=== PATIENT | female | born 1940 | race African-American/Black ===

== ENCOUNTER 2018-01-09 11:37 | Outpatient (REF) | payer MEDICARE, SELFPAY ==
[2018-01-09 18:48] LABS: ALT 16 U/L (12-78); AST 12 U/L (15-37); Alkaline Phosphatase 126 U/L (46-116); Anion Gap 8.3 mmol/L (3-11); BUN 10 mg/dL (7-18); Bilirubin, Total 0.5 mg/dL (0.2-1.0); CO2 30.7 mmol/L (21.0-32.0); CREATININE 0.83 mg/dL (0.55-1.02); Calcium 9.5 mg/dL (8.5-10.1); Chloride 102 mmol/L (98-107); Cholesterol 237 mg/dL (50-200); Glucose 114 mg/dL (70-100); HDL Cholesterol 51 mg/dL (40-60); LDL CHOLESTEROL 148 mg/dL (<100); Potassium 4.1 mmol/L (3.5-5.1); Sodium 141 mmol/L (136-145); Total Protein 7.6 g/dL (6.4-8.2); Triglyceride 126 mg/dL (30-150)
== END 2018-01-09 11:57 ==
LOC: NCHCN 11:37
PROVIDERS: PCP Nurse Practitioner Family; Visit Provider Nurse Practitioner Family
DX: E78.5 Hyperlipidemia, unspecified (principal); E11.9 Type 2 diabetes mellitus without complications; I70.0 Atherosclerosis of aorta
CPT/HCPCS: 80053; 80061; 83721

== ENCOUNTER 2018-05-19 10:02 | Outpatient (REF) | payer MEDICARE, SELFPAY ==
[2018-05-19 19:47] LABS: COMMENT (LAB VIEW ONLY) 24.77 mg/dL; Microalb ug/mg Crea 5.7 ug/mg Cr
== END 2018-05-19 10:22 ==
LOC: NCHCN 10:02
PROVIDERS: PCP Nurse Practitioner Family; Visit Provider Nurse Practitioner Family
DX: E11.9 Type 2 diabetes mellitus without complications (principal)
CPT/HCPCS: 82043; 82570

== ENCOUNTER 2019-10-12 14:59 | Outpatient (REF) | payer MEDICARE, SELFPAY ==
[2019-10-12 19:28] LABS: ALT 22 U/L (14-59); AST 15 U/L (15-37); Alkaline Phosphatase 170 U/L (46-116); Anion Gap 8.7 mmol/L (3-11); BUN 10 mg/dL (7-18); Bilirubin, Total 0.5 mg/dL (0.2-1.0); CO2 28.3 mmol/L (21.0-32.0); CREATININE 0.84 mg/dL (0.55-1.02); Calcium 9.5 mg/dL (8.5-10.1); Chloride 104 mmol/L (98-107); Glucose 112 mg/dL (74-106); Sodium 141 mmol/L (136-145); Total Protein 7.6 g/dL (6.4-8.2)
== END 2019-10-12 15:19 ==
LOC: NCHCN 14:59
PROVIDERS: PCP Nurse Practitioner Family; Visit Provider Nurse Practitioner Family
DX: E11.9 Type 2 diabetes mellitus without complications (principal); I10 Essential (primary) hypertension
CPT/HCPCS: 80053

== ENCOUNTER 2020-05-09 15:04 | Outpatient (REF) | payer MEDICARE, SELFPAY ==
[2020-05-09 20:11] LABS: COMMENT (LAB VIEW ONLY) 37.37 mg/dL; Microalb ug/mg Crea 10.7 ug/mg Cr
== END 2020-05-09 15:05 | disposition home or self-care (01) ==
LOC: NCHCN 15:04
PROVIDERS: PCP Nurse Practitioner Family; Visit Provider Physician Assistant
DX: E11.9 Type 2 diabetes mellitus without complications (principal)
CPT/HCPCS: 82043; 82570

== ENCOUNTER 2020-06-15 10:55 | Outpatient (REF) | payer OTHER, SELFPAY ==
[2020-06-15 16:44] LABS: ALT 29 U/L (14-59); AST 14 U/L (15-37); Alkaline Phosphatase 158 U/L (46-116); Anion Gap 10.7 mmol/L (3-11); BUN 10 mg/dL (7-18); Bilirubin, Total 0.5 mg/dL (0.2-1.0); CO2 28.3 mmol/L (21.0-32.0); CREATININE 0.8 mg/dL (0.55-1.02); Calcium 9.2 mg/dL (8.5-10.1); Calculated LDL 54 mg/dL (<100); Chloride 105 mmol/L (98-107); Cholesterol 118 mg/dL (<200); Glucose 132 mg/dL (74-106); HDL Cholesterol 51 mg/dL (40-60); Potassium 4.4 mmol/L (3.5-5.1); Sodium 144 mmol/L (136-145); Total Protein 7.6 g/dL (6.4-8.2); Triglyceride 69 mg/dL (<150)
== END 2020-06-15 10:56 | disposition home or self-care (01) ==
LOC: NCHCN 10:55
PROVIDERS: PCP Nurse Practitioner Family; Visit Provider Nurse Practitioner Family
DX: E11.9 Type 2 diabetes mellitus without complications (principal); I10 Essential (primary) hypertension; E78.5 Hyperlipidemia, unspecified
CPT/HCPCS: 80053; 80061

== ENCOUNTER 2021-11-21 02:25 | Outpatient (CLI) | payer MEDICARE, SELFPAY ==
--- NOTE | 2021-11-21 09:47 | DI.RAD_ITS ---
Exam(s) XR SHOULDER RT COMPLETE 2+V EXAM: XR SHOULDER RT COMPLETE 2+V CLINICAL HISTORY: evaluate joint space,bony pathology, arthritis, capsulitis, pain, m75.01,. TECHNIQUE: 2D digital imaging was performed. Five views. COMPARISON: No exams were available for comparison FINDINGS: BONES: No acute fracture is present. No bony destructive lesion is seen. Severe spur spurring at the inferior humeral head. Flattening and remodeling of the humeral head. Marked subchondral cyst form ation glenoid and humeral head. JOINTS: No dislocation present. There is severe narrowing of the glenohumeral joint with a bone-on-b one appearance. Mild spurring of the AC joint. SOFT TISSUE: Normal. IMPRESSION: End-stage degenerative changes of the glenohumeral joint. DATA REPOSITORY: RADIATION DOSE DELIVERED:
== END 2021-11-21 02:45 ==
LOC: DI 02:26
PROVIDERS: PCP Student in an Organized Health Care Education/Training Program; Visit Provider Student in an Organized Health Care Education/Training Program
DX: M19.011 Primary osteoarthritis, right shoulder (principal); M75.01 Adhesive capsulitis of right shoulder
CPT/HCPCS: 73030

== ENCOUNTER → 2021-12-08 10:08 | Outpatient (BNVA) | payer MEDICARE, SELFPAY | PROVIDERS: PCP Student in an Organized Health Care Education/Training Program; Referring Provider Internal Medicine; Visit Provider Surgery | DX: I73.9 Peripheral vascular disease, unspecified (principal) | CPT/HCPCS: 93922; 99211 ==

== ENCOUNTER 2021-12-26 11:18 | Emergency (ER) | payer MEDICARE, SELFPAY ==
[2021-12-26] VITALS (11 sets, daily range): BP systolic 168–218; BP diastolic 60–78; PULSE 70–86; RESP 12–24; O2SAT 91–96
--- NOTE | 2021-12-26 11:40 | ED.GENADUL_ITS ---
Discharge Plan Disposition Patient Disposition: HOME Condition: Stable Discharge Details Clinical Impression: Hypertension Primary Care Provider: Ania King ED Provider: Katie Fried Home Meds and New Rx's Prescriptions: Continued aspirin [Adult Low Dose Aspirin] 81 mg tablet,delayed release (DR/EC) 81 mg PO DAILY nystatin 100,000 unit/gram ointment 1 applic topical BID triamcinolone acetonide 0.1 % ointment 1 applic topical PRN glipizide 5 mg tablet 5 mg PO DAILY Qty: 90 3RF olmesartan-hydrochlorothiazide 40-12.5 mg tablet 1 tab PO DAILY Qty: 90 0RF Hold Instructions: Home Medication placed on hold at Doctor's office amlodipine 2.5 mg tablet 2.5 mg PO DAILY Qty: 90 3RF olmesartan 20 mg tablet 20 mg PO DAILY Qty: 90 0RF Rx Instructions: Trial w/o HCTZ acetaminophen [Tylenol Arthritis Pain] 650 mg tablet extended release 650 mg PO Q12H PRN (Reason: pain) Qty: 60 0RF carvedilol 25 mg tablet 25 mg PO BID Qty: 180 0RF Rx Instructions: must administer with a meal/food Tradjenta 5 mg tablet 5 mg PO DAILY Qty: 90 3RF atorvastatin 40 mg tablet 40 mg PO QHS Qty: 90 3RF Tradjenta 5 mg Tablet 5 mg PO 1XD Discharge Instructions Instructions: Hypertension (ED) Additional Instructions: Continue your regular medications as directed. Call your primary care doctor's office today to schedule a follow up appointment for reevaluation. Return immediately to the emergency department if you develop any worsening or new concerning symptoms such as persistent high blood pressure despite taking medication, headache, chest pain, dizziness or any other concerns. Discharge Data Discharge Physician: Katie Fried Medical Decision Making 81-year-old female sent from the orthopedic office for high blood pressure noted on her appointment this morning after recommended she presents to the ER per orthopedist discussion with PCP. Her BP at the orthopedist office today was 218/116. She normally takes her blood pressure medications with food and did not eat this morning and went directly to her appointment. She has been asymptomatic. Blood pressure 218/78 on arrival. She appears comfortable and nontoxic. No focal deficits. As she is asymptomatic and appears comfortable, history of presentation does not appear consistent with hypertensive emergency I do not see indication for labs or imaging at this time. We do not carry olmesartan. We will give a dose of patient's carvedilol and amlodipine and recheck her BP. BP 181/63. Patient feels comfortable going home. Advised to take her olmesartan when she returns home. Advised to follow up with the primary care doctor for re-evaluation. Usual and customary return precautions given prior to discharge. HPI General Mode of arrival: ambulatory . Date/Time Provider Initiated Documentation: 12/26/21 11:28 . Limitations to Documentation: no limitations . Information obtained by: patient . HPI Narrative: Patient is an 81-year-old female with a history of hypertension, hyperlipidemia, former smoker, diabetes and known degenerative joint disease in her right shoulder presents for hypertension noted at the orthopedic office today where she left for her right shoulder pain. Per the orthopedist record from visit one hour ago, her BP was 218/116 and she reported that she had not taken her BP meds yet today, was asymptomatic and a call was placed to her PCP from the orthopedist office and the PCP referred her to the ED. patient states she usually takes her medications with food but had the orthopedist appointment today so did not eat and hence did not take her blood pressure medication. She states she takes all of her blood pressure medications including amlodipine, carvedilol and olmesartan in the morning and has not taken any of these yet today. She denies any headache, blurry vision, chest pain, shortness of breath, dizziness or extremity weakness or numbness. Related Data Home Medications Medication Instructions Recorded Confirmed aspirin 81 mg tablet,delayed 81 mg PO DAILY 08/30/20 12/26/21 release (Adult Low Dose Aspirin) nystatin 100,000 unit/gram topical 1 applic topical BID 08/31/20 12/26/21 ointment triamcinolone acetonide 0.1 % 1 applic topical PRN 08/31/20 12/26/21 topical ointment glipizide 5 mg tablet 5 mg PO DAILY #90 tabs 11/01/20 12/26/21 olmesartan 40 1 tab PO DAILY #90 tabs 08/29/21 12/26/21 mg-hydrochlorothiazide 12.5 mg tablet amlodipine 2.5 mg tablet 2.5 mg PO DAILY #90 tabs 09/27/21 12/26/21 acetaminophen 650 mg 650 mg PO Q12H PRN pain #60 tabs 10/18/21 12/26/21 tablet,extended release (Tylenol Arthritis Pain) olmesartan 20 mg tablet 20 mg PO DAILY #90 tabs 10/18/21 12/26/21 carvedilol 25 mg tablet 25 mg PO BID #180 tabs 10/30/21 12/26/21 atorvastatin 40 mg tablet 40 mg PO QHS #90 tabs 11/21/21 12/26/21 linagliptin 5 mg tablet (Tradjenta) 5 mg PO DAILY #90 tabs 11/21/21 12/26/21 linagliptin 5 mg tablet (Tradjenta) 5 mg PO 1XD 12/26/21 12/26/21 Previous Rx's Medication Instructions Recorded glipizide 5 mg tablet 5 mg PO DAILY #90 tabs 11/01/20 olmesartan 40 1 tab PO DAILY #90 tabs 08/29/21 mg-hydrochlorothiazide 12.5 mg tablet amlodipine 2.5 mg tablet 2.5 mg PO DAILY #90 tabs 09/27/21 acetaminophen 650 mg 650 mg PO Q12H PRN pain #60 tabs 10/18/21 tablet,extended release (Tylenol Arthritis Pain) olmesartan 20 mg tablet 20 mg PO DAILY #90 tabs 10/18/21 carvedilol 25 mg tablet 25 mg PO BID #180 tabs 10/30/21 atorvastatin 40 mg tablet 40 mg PO QHS #90 tabs 11/21/21 linagliptin 5 mg tablet (Tradjenta) 5 mg PO DAILY #90 tabs 11/21/21 Allergies Allergy/AdvReac Type Severity Reaction Status Date / Time metformin AdvReac Severe explosive Verified 12/26/21 10:32 diarrhea amlodipine AdvReac Intermediate L.E. edema Verified 12/26/21 10:32 lisinopril AdvReac Intermediate COUGH Uncoded 12/26/21 10:32 General Stated Complaint: [facility]Medical XENIA: 4 Review of Systems All systems reviewed & are unremarkable except as noted in HPI and below Constitutional Constitutional: Reports as per HPI, Denies chills and Denies fever(s) Eyes Eyes: Denies blurry vision ENT Ears, Nose, Mouth, and Throat: Denies dizziness, Denies sore throat and Denies throat swelling Cardiovascular Cardiovascular: Denies chest pain and Denies dyspnea Respiratory Respiratory: Denies cough and Denies dyspnea Gastrointestinal Gastrointestinal: Denies abdominal pain, Denies diarrhea and Denies vomiting Genitourinary Genitourinary: Denies hematuria and Denies dysuria Musculoskeletal Musculoskeletal: Denies back pain and Denies numbness Integumentary/Breasts Skin/Breast: Denies lesions and Denies rash Neurologic Neurologic: Denies dizziness, Denies localized weakness and Denies numbness Allergic/Immunologic Allergic/Immunologic: Denies throat swelling PFSH All Active Problems (Updated 12/26/21 @ 12:53 by Katie Fried DO) Hypertension (Chronic) Hypertensive crisis (Acute) Arthritis of shoulder region, right (Acute) Hx steroid injections in [place]. Consider repeat injections here? Claudication of calf muscles (Acute) Vitamin D deficiency (Acute) Atherosclerosis of aorta (Acute) Urinary frequency (Chronic) Eczema (Acute) Medical History (Updated 12/26/21 @ 12:53 by Katie Fried DO) Degenerative joint disease, shoulder, right End-stage, per 11/2021 XR Diabetes mellitus type II, controlled Former smoker 20 pk yr hx; quit [id number] Hyperlipidemia Hypertension Family History (Updated 08/25/20 @ 11:47 by Brittani Landeros) Son Diabetes Hypertension Daughter Diabetes Hypertension Social History (Updated 08/31/20 @ 13:25 by Val Napoles LPN) Smoking/Tobacco Use Status: Former Tobacco Use Quit Date: 03/11/05 Smoking risk assessment performed?: Yes Alcohol Intake: current Alcohol Intake frequency: a few times a month Alcohol type: beer and wine Drug use: Never Substance use type: does not use Adopted: No Caregiver/Support person: No Foster care: No Household members: none Housing: apartment Number of Children: 3 number of grandchildren: 10 Communication Needs: Corrective Lenses Do you need help understanding health information?: Never current occupation: retired homemaker Sexually active: No Do you think of yourself as: straight/heterosexual Current gender identity: female What is your relationship status?: How often do you talk on the phone with friends or family?: three or more times per week Panel score (0-1 are the most socially isolated patients): 1 What type of physical activity do you participate in: walking Seatbelt use: always Water heater temp set <120 deg: Yes Working smoke detector in home: Yes Fire extinguisher in home: Yes Carbon monox detector in home: Yes Do you feel safe at home: Yes Do you feel safe in your relationship?: Yes Exam Const General: cooperative, healthy appearing and no acute distress Orientation: alert, awake and oriented x3 HENMT Head: normal to inspection Face and sinus: normal facial exam Eyes General: appearance normal, both eyes and all related structures Pupils: PERRL EOM: EOM intact bilaterally Neck Neck: normal visual inspection and No submandibular swelling Lymphatic: no lymphadenopathy noted Chest Chest: normal inspection of the chest and no tenderness Resp Effort & Inspection: normal respiratory effort and able to speak in complete sentences Auscultation: clear to auscultation bilaterally Cardio Rate: regular rate Rhythm: regular rhythm GI Inspection: normal to inspection Palpation: soft, not firm, not rigid and nontender Auscultation: normal bowel sounds Skin General skin exam: no rashes or lesions noted Neuro General: patient alert, patient awake, patient oriented x3, gait normal and moves all extremities Cranial Nerves: CN's II-XI intact bilaterally Cognition: normal cognition Speech: speech normal Motor: muscle tone normal throughout Sensory Exam: no sensory deficits noted Extrem General: normal to inspection, full ROM, capillary refill normal, no calf tenderness bilaterally and no edema Psych Appearance: grossly normal Mental Status: mental status grossly normal Speech and Movement: speech and movement normal Affect: normal affect Course Vital Signs Vital signs: Vital Signs Pulse 78 12/26/21 11:22 Respiratory Rate 12 12/26/21 11:22 Blood Pressure 218/78 H 12/26/21 11:22 Temperature Source Oral 12/26/21 11:22 Pulse 78 12/26/21 11:22 Respiratory Rate 12 12/26/21 11:22 Respiratory Effort 12/26/21 11:34 Blood Pressure 218/78 H 12/26/21 11:22 Blood Pressure Position Sitting 12/26/21 11:22 Oxygen Delivery Method Room Air 12/26/21 11:22 Oxygen Flow Rate 0 12/26/21 11:22 Pain Level 0 12/26/21 11:22
[2021-12-26] MEDS: Carvedilol 25 MG TAB PO (12:25)
[2021-12-26] MEDS: amLODIPine 2.5 MG TAB PO (12:25)
== END 2021-12-26 13:14 | disposition home or self-care (01) ==
PROVIDERS: Emergency Provider Physician Assistant; PCP Student in an Organized Health Care Education/Training Program
DX: I10 Essential (primary) hypertension (principal)
CPT/HCPCS: 99204; 99214; 99283

== ENCOUNTER 2022-07-24 02:54 | Outpatient (CLI) | payer MEDICARE, SELFPAY ==
[2022-07-24 10:15] LABS: HCT 44.5 % (36.0-46.0); HGB 14.6 g/dL (11.2-15.7); MCH 28.7 pg (27.0-33.0); MCHC 32.8 % (32.0-36.0); MCV 87 fL (80-95); Platelet Count 264 10^3/uL (130-400); RBC 5.09 10^6/uL (3.93-5.22); RDW 13.9 % (11.7-14.6); RDW-SD 44.6 fL; WBC 5.73 10^3/uL (4.4-10.8)
[2022-07-24 10:57] LABS: Folate 13.7 ng/mL (8.6-20.0)
[2022-07-24 11:03] LABS: Vitamin D 25 Total 19.8 ng/mL (30-100)
[2022-07-24 11:16] LABS: ALT 28 U/L (14-59); AST 15 U/L (15-37); Albumin 3.9 g/dL (3.4-5.0); Alkaline Phosphatase 153 U/L (46-116); BUN 10 mg/dL (7-18); Bilirubin, Total 0.6 mg/dL (0.2-1.0); CREATININE 0.9 mg/dL (0.55-1.02); Calcium 9.3 mg/dL (8.5-10.1); Calculated LDL 64 mg/dL (<100); Chloride 106 mmol/L (98-107); Cholesterol 138 mg/dL (<200); Estimated GFR 63.43 (mL/min/1.73m2); Glucose 154 mg/dL (74-106); HDL Cholesterol 60 mg/dL (40-60); Potassium 3.7 mmol/L (3.5-5.1); Sodium 144 mmol/L (136-145); Triglyceride 71 mg/dL (<150); Vitamin B12 609 pg/mL (193-986)
== END 2022-07-24 02:55 | disposition home or self-care (01) ==
LOC: LBO 02:54
PROVIDERS: PCP Student in an Organized Health Care Education/Training Program; Visit Provider Student in an Organized Health Care Education/Training Program
DX: G62.9 Polyneuropathy, unspecified; E55.9 Vitamin D deficiency, unspecified; Z91.89 Other specified personal risk factors, not elsewhere classified; E11.9 Type 2 diabetes mellitus without complications; R60.9 Edema, unspecified; R94.5 Abnormal results of liver function studies
CPT/HCPCS: 36415; 80053; 80061; 82306; 85027; 82607; 82746; 84443

== ENCOUNTER 2022-08-08 02:38 | Outpatient (CLI) | payer MEDICARE, SELFPAY ==
--- NOTE | 2022-08-08 11:40 | DI.MAMMO_ITS ---
Exam(s) MAMMO SCREENING EXAM: MAMMO SCREENING CLINICAL HISTORY: screening, z12.39 TECHNIQUE: Mammograms were interpreted according to the usual protocol including computer analysis w LIN TV CAD system, tomosynthesis and C-view imaging. COMPARISON: 2016 FINDINGS: The breasts are composed of scattered fibroglandular densities, Breast Density category B. No suspicious masses or suspicious microcalcifications are seen. No skin thickening or abnormal axillary lymph nodes are seen. There has been no significant change from prior exams. IMPRESSION: BI-RADS Category 1, Negative mammogram Yearly screening mammography is recommended. Breast Density - Category B, scattered fibroglandular densities. A negative radiographic report should not delay biopsy if a dominant or clinically suspicious mass is present. Up to ten percent of cancers are not identified on mammography. A negative report may reinforce clinical impression. Adenosis and dense breasts may obscure an underlying neoplasm. False positive reports average 6 to 10%. Patient will receive a letter notifying them of these results.
== END 2022-08-08 02:58 ==
LOC: DI 02:38
PROVIDERS: PCP Student in an Organized Health Care Education/Training Program; Visit Provider Student in an Organized Health Care Education/Training Program
DX: Z12.31 Encounter for screening mammogram for malignant neoplasm of breast (principal)
CPT/HCPCS: 77063; 77067

== ENCOUNTER 2023-07-09 05:37 | Outpatient (CLI) | payer MEDICARE, SELFPAY ==
[2023-07-09 10:05] LABS: Hemoglobin A1C 6.9 % (<5.7)
[2023-07-09 10:52] LABS: Vitamin D 25 Total 26.8 ng/mL (30-100)
[2023-07-09 10:54] LABS: Anion Gap 5.6 mmol/L (3-11); BUN 12 mg/dL (7-18); CO2 28.4 mmol/L (21.0-32.0); CREATININE 0.8 mg/dL (0.55-1.02); Calcium 9.3 mg/dL (8.5-10.1); Chloride 106 mmol/L (98-107); Estimated GFR 72.61 (mL/min/1.73m2); Glucose 144 mg/dL (74-106); Potassium 3.6 mmol/L (3.5-5.1); Sodium 140 mmol/L (136-145); Vitamin B12 600 pg/mL (193-986)
== END 2023-07-09 05:38 | disposition home or self-care (01) ==
LOC: LBO 05:38
PROVIDERS: PCP Student in an Organized Health Care Education/Training Program; Referring Provider Student in an Organized Health Care Education/Training Program; Visit Provider Student in an Organized Health Care Education/Training Program
DX: E55.9 Vitamin D deficiency, unspecified; Z78.0 Asymptomatic menopausal state; I10 Essential (primary) hypertension; E11.9 Type 2 diabetes mellitus without complications
CPT/HCPCS: 36415; 80048; 82306; 82607; 83036

== ENCOUNTER → 2023-08-16 04:06 | Outpatient (CLI) | payer MEDICARE, MEDICAID, SELFPAY ==
--- NOTE | 2023-08-16 11:48 | DI.MAMMO_ITS ---
Exam(s) MAMMO SCREENING EXAM: MAMMO SCREENING CLINICAL HISTORY: screening, Z12.39 TECHNIQUE: Bilateral full field digital CC and MLO mammographic images were obtained with 3D tomosyn thesis and utilizing computer aided detection (CAD). COMPARISON: Available for comparison. FINDINGS: Masses/Architectural Distortion: None seen. Microcalcifications: No suspicious pleomorphic-type are seen. Skin Thickening/Nipple Retraction: None. IMPRESSION: 1. No significant interval change with no specific features of malignancy noted. 2. Unless there is more urgent need, screening mammography is recommended, as per [employer] guidelines. BI-RADS Category 1 - Negative Breast Density - Category B - Scattered areas of fibroglandular density Breast density category C or D implies that the patient has dense breast tissue. Dense breast tissue is very common and is not abnormal but dense breast tissue can make it harder to find cancer on a ma mmogram. Also, dense breast tissue may increase their breast cancer risk. This information about the result of the mammogram report was provided to the patient to raise their awareness. Use this report when you speak with the patient about their risks for breast cancer, which includes their family hist ory. At that time, you may recommend for more screening tests (Ultrasound or MRI) as they might be us eful based on their risk. A negative radiographic report should not delay biopsy if a dominant or clinically suspicious mass is present. Up to ten percent of cancers are not identified on mammography. A negative report may reinforce clinical impression. Adenosis and dense breasts may obscure an underlying neoplasm. False positive reports average 6 to 10%. Patient will receive a letter notifying them of these results.
== END ==
PROVIDERS: PCP Student in an Organized Health Care Education/Training Program; Visit Provider Student in an Organized Health Care Education/Training Program
DX: Z12.31 Encounter for screening mammogram for malignant neoplasm of breast (principal)
CPT/HCPCS: 77063; 77067

== ENCOUNTER → 2023-08-20 10:49 | Outpatient (BNVA) | payer MEDICARE, MEDICAID, SELFPAY | PROVIDERS: PCP Student in an Organized Health Care Education/Training Program; Referring Provider Student in an Organized Health Care Education/Training Program; Visit Provider Podiatrist | DX: G62.9 Polyneuropathy, unspecified (principal); E11.40 Type 2 diabetes mellitus with diabetic neuropathy, unspecified; I70.203 Unspecified atherosclerosis of native arteries of extremities, bilateral legs; L60.0 Ingrowing nail; M79.672 Pain in left foot | CPT/HCPCS: 11750 ==

== ENCOUNTER → 2023-09-11 09:25 | Outpatient (BNVA) | payer MEDICARE, MEDICAID, SELFPAY | PROVIDERS: PCP Student in an Organized Health Care Education/Training Program; Referring Provider Student in an Organized Health Care Education/Training Program; Visit Provider Podiatrist | DX: I70.203 Unspecified atherosclerosis of native arteries of extremities, bilateral legs (principal); E11.40 Type 2 diabetes mellitus with diabetic neuropathy, unspecified; G62.9 Polyneuropathy, unspecified; L60.0 Ingrowing nail; M79.672 Pain in left foot | CPT/HCPCS: 99213 ==

== ENCOUNTER 2024-01-28 02:10 | Outpatient (CLI) | payer MEDICARE, MEDICAID, SELFPAY ==
--- NOTE | 2024-01-28 11:19 | DI.RAD_ITS ---
Exam(s) XR THORACIC SPINE COMPLETE EXAM: XR THORACIC SPINE COMPLETE CLINICAL HISTORY: eval spine curvature, bony path,RADICULOPATHY,ACUTE BACK PAIN,M54.9. TECHNIQUE: 2D digital imaging was performed. Three views. COMPARISON: No exams were available for comparison FINDINGS: BONES: There is no fracture or destructive lesion. The vertebral bodies and posterior elements are un remarkable. Small endplate osteophytes. ALIGNMENT: Within normal limits. DISKS: Interverebral disc spaces are maintained. SOFT TISSUE: Visualized lungs show linear scarring at the bases. Heart is enlarged. There is calc ification at the aortic arch. IMPRESSION: Mild degenerative changes of the thoracic spine. DATA REPOSITORY: RADIATION DOSE DELIVERED:
--- NOTE | 2024-01-28 11:20 | DI.RAD_ITS ---
Exam(s) XR LUMBAR SPINE COMPLETE EXAM: XR LUMBAR SPINE COMPLETE CLINICAL HISTORY: eval spine curvature, bony path,RADICULOPATHY,ACUTE LOW BACK PAIN,M54.50. TECHNIQUE: 2D digital imaging was performed. Five views. COMPARISON: No exams were available for comparison FINDINGS: BONES: No fracture or destructive lesion. Vertebral body heights are maintained. Small to moderate -sized endplate osteophytes throughout. facet degenerative changes present at L3-4 through L5-S1. S light retrolisthesis of L5 secondary to facet degenerative changes. DISKS: Mild narrowing and endplate osteophytes of the L2-3 disc space. ALIGNMENT: Slight degenerative levoscoliosis. SOFT TISSUE: The aorta is calcified but normal in diameter. IMPRESSION: Degenerative changes, greatest of the facet joints in the lower lumbar spine. DATA REPOSITORY: RADIATION DOSE DELIVERED:
== END 2024-01-28 02:30 ==
PROVIDERS: PCP Student in an Organized Health Care Education/Training Program; Visit Provider Student in an Organized Health Care Education/Training Program
DX: M51.35 Other intervertebral disc degeneration, thoracolumbar region (principal)
CPT/HCPCS: 72072; 72110

== ENCOUNTER 2024-03-26 00:22 | Outpatient (CLI) | payer MEDICARE, MEDICAID, SELFPAY ==
--- NOTE | 2024-03-26 08:30 | DI.US_ITS ---
APPROVED REPORT EXAM: Comprehensive 2D, Doppler, and color-flow Echocardiogram Patient Location: Out-Patient Hog Feeder: Dayna Gómez RDCS ([place]) Indications: Evaluate heart function, Cardiomegaly on Xray, Edema HTN Other Information Study Quality: Adequate Conclusion Borderline concentric left ventricular hypertrophy. Ejection fraction is 55%. Wall motion is normal Normal right ventricular size and function Both atria are normal in size Aortic valve is sclerotic and trileaflet without stenosis or regurgitation Mild mitral annular calcification. Mild mitral regurgitation Estimated right ventricular systolic pressure is 45 mmHg Wall motion Left Ventricle The left ventricle is normal size. The overall left ventricular systolic function appears normal. Bor derline concentric left ventricular hypertrophy. There is normal LV segmental wall motion. There is n o ventricular septal defect visualized. LVEF is 55%. Right Ventricle The right ventricle is normal size. The right ventricular systolic function is normal. Atria The left atrium size is normal. The right atrium size is normal. The interatrial septum is intact wit h no evidence for an atrial septal defect. Aortic Valve The Aortic valve is sclerotic. Aortic valve is trileaflet. There is no aortic valvular stenosis. No a ortic regurgitation is present. Mitral Valve Mild mitral annular calcification. No evidence of mitral valve stenosis. Mild mitral regurgitation. Tricuspid Valve The tricuspid valve is normal in structure. There is no tricuspid valve stenosis. Trace tricuspid reg urgitation. The RVSP is 44.8mmHg. Pulmonic Valve The pulmonary valve is normal in structure. There is no pulmonic valvular stenosis. Trace to mild pul violeta regurgitation. Great Vessels The aortic root is normal in size. The ascending aorta is normal in size. Aortic arch is not well vis ualized. IVC is normal in size and collapses >50% with inspiration. Pericardium There is no pericardial effusion. 2D Dimensions IVSD d PLAX 1.10 cm F: 0.6-1.0 Ao Root d 2.61 cm F: 2.7 - 3.3 LVPW d PLAX 1.10 cm F: 0.6 - 1.0 Ao Asc Diam d 2.83 cm F: 2.3 - 3.1 LVID d PLAX 4.30 cm F: 3.8 - 5.2 LVDs 3.10 cm F: 2.2 - 3.5 LV EF Teichholz 55.3 % FS 28.48 % LV EDV (Teich) 81.9 mL LV ESV (Teich) 36.6 mL M-Mode TAPSE 2.35 cm (M/F) >1.7 Auto EF LV EDV A4C 84.2 mL LV EDV A2C 96.1 mL LV EDV BP 89.4 mL LV ESV A4C 40.1 mL LV ESV A2C 45.7 mL LV ESV BP 40.8 mL LVEF(%) A4C 52.4 % LVEF(%) A2C 52.4 % LVEF(%) BP 54.3 % LV SV A4C 44.1 ml LV SV A2C 50.4 ml LV SV BP 48.6 ml LV CO A4C 3.0 L/min LV CO A2C 3.6 L/min LV CO BP 3.3 L/min HR A4C 68.19 BPM HR A2C 70.59 BPM LV EDV Index (BP) LA Volume LA Length A4C 5.8 cm LA Length A2C 4.2 cm LA Area A4C s 18.01 cm2 LA Area A2C s 13.20 cm2 LA Vol A4C A-L 47.73 mL LA Vol A2C A-L 35.40 mL LA Vol Biplane A-L 48.3 mL LA Vol/BSA A4C A-L LA Vol/BSA A2C A-L LA Vol/BSA BP A-L 27.2 mL/m2 LA Vol A4C MOD 44.6 mL LA Vol A2C MOD 32.9 mL LA Vol BP MOD 44.8 mL RA Volume RA Area A4C 15.2 cm2 RA ESV A4C (A-L) 41.2mL RA Vol/BSA A4C A-L RA Length A4C 4.8 cm RA ESV A4C (MOD) 39.6mL LV Diastology MV E' medial 0.063 (>0.07 m/s) MV E Vmax 0.93 (0.4-1.3 m/s) MV E/E' MED 14.76 (<14) MV A Vmax 1.05 (0.4-1.3 m/s) MV E' lateral 0.076 (>0.1 m/s) E/A Ratio 0.9 MV E/E' LAT 12.33 (<14) MV E' Average 0.070 m/s MV E/E'(average) 13.44 Aortic Valve AoV Vmax 1.43 m/s LVOT Vmax 1.00 m/s AoV Peak Grad 8.2 mmHg LVOT Peak Grad 4.0 mmHg AoV Area (Vmax) 2.13 cm2 LVOT VTI 0.223 m AoV VTI 0.347 m LVOT Mean Grad 2.1 mmHg AoV Mean Pedro Pablo. 1.01 m/s LVOT SV 68.12 mL AoV Mean Grad 4.7 mmHg LVOT Diam s 1.95 cm AoV Area (VTI) 1.96 cm2 AV Regurg Peak Gr. 8.23 mmHg Velocity Ratio 0.70 Mitral Valve MV DT 179 (160-240 msec) MV Vmax TIPS 1.03 m/s MV Mean Grad 2.4 (<2mmHg) MV VTI 0.299 m Pulmonary Valve PV Vmax 0.87 (0.5-1.5 m/s) RVOT Vmax 0.75 m/s PV Peak Grad 3.0 mmHg RVOT Peak Gr. 2.2 mmHg PV Mean Pedro Pablo 0.64 m/s RVOT VTI 0.175 m PV Mean Grad 1.8 mmHg RVOT Mean Gr. 1.2 mmHg Tricuspid Valve RA Pressure 3.00 mmHg TR Vmax 3.23 m/s TV S' 0.16 m/s TR Peak Grad 41.8 mmHg RVSP (TR) 44.8 mmHg
== END 2024-03-26 00:42 ==
LOC: DI 00:22
PROVIDERS: PCP Student in an Organized Health Care Education/Training Program; Visit Provider Internal Medicine Cardiovascular Disease
DX: I51.7 Cardiomegaly (principal)
CPT/HCPCS: 93306

== ENCOUNTER 2024-05-27 03:56 | Outpatient (CLI) | payer MEDICARE, MEDICAID, SELFPAY ==
[2024-05-27 09:06] LABS: HCT 44.1 % (36.0-46.0); MCH 27.9 pg (27.0-33.0); MCHC 31.7 % (32.0-36.0); MCV 88 fL (80-95); MPV 10.7 fL (8.0-11.0); Platelet Count 264 10^3/uL (130-400); RBC 5.01 10^6/uL (3.93-5.22); RDW 13.6 % (11.7-14.6); RDW-SD 43.8 fL; WBC 5.35 10^3/uL (4.4-10.8)
[2024-05-27 09:51] LABS: ALT 23 U/L (14-59); AST 19 U/L (15-37); Albumin 3.7 g/dL (3.4-5.0); Alkaline Phosphatase 150 U/L (46-116); BUN 15 mg/dL (7-18); Bilirubin, Total 0.6 mg/dL (0.2-1.0); CREATININE 0.7 mg/dL (0.55-1.02); Calcium 9.5 mg/dL (8.5-10.1); Calculated LDL 49 mg/dL (<100); Chloride 107 mmol/L (98-107); Cholesterol 115 mg/dL (<200); Glucose 137 mg/dL (74-106); HDL Cholesterol 55 mg/dL (>or=50); Potassium 3.9 mmol/L (3.5-5.1); Sodium 144 mmol/L (136-145); Triglyceride 58 mg/dL (<150); Vitamin D 25 Total 29 ng/mL (30-100)
[2024-05-27 09:56] LABS: Vitamin B12 666 pg/mL (193-986)
== END 2024-05-27 03:57 | disposition home or self-care (01) ==
LOC: LBO 03:56
PROVIDERS: Student in an Organized Health Care Education/Training Program; Absent Provider Nurse Practitioner; PCP Nurse Practitioner; Referring Provider Nurse Practitioner; Visit Provider Nurse Practitioner
DX: I10 Essential (primary) hypertension (principal); E11.9 Type 2 diabetes mellitus without complications; Z91.89 Other specified personal risk factors, not elsewhere classified; G62.9 Polyneuropathy, unspecified; I70.0 Atherosclerosis of aorta; R53.83 Other fatigue; E55.9 Vitamin D deficiency, unspecified; K90.9 Intestinal malabsorption, unspecified; Z13.220 Encounter for screening for lipoid disorders
CPT/HCPCS: 36415; 80053; 80061; 82306; 85027; 82607

== ENCOUNTER 2024-08-19 02:49 | Outpatient (CLI) | payer MEDICARE, MEDICAID, SELFPAY ==
--- NOTE | 2024-08-19 07:00 | DI.MAMMO_ITS ---
Exam(s) MAMMO SCREENING EXAM: MAMMO SCREENING CLINICAL HISTORY: screening,Z12.39 TECHNIQUE: Bilateral full field digital CC and MLO mammographic images were obtained with 3D tomosyn thesis and utilizing computer aided detection (CAD). COMPARISON: Comparison is made with prior examinations. FINDINGS: Masses/Architectural Distortion: No suspicious masses or areas of architectural distortion are presen t. Microcalcifications: No suspicious pleomorphic-type are seen. Skin Thickening/Nipple Retraction: None. IMPRESSION: 1. No significant interval change with no specific features of malignancy noted. 2. Unless there is more urgent need, screening mammography is recommended, as per [employer] guidelines. BI-RADS Category 1 - Negative Breast Density - Category B - There are scattered areas of fibroglandular density. Breast density Category C or D implies that the patient has dense breast tissue. Dense breast tissue can make it harder to find cancer on a mammogram. Dense breast tissue is also associated with an incr eased risk of breast cancer. This information about the result of the mammogram report was provided to the patient to raise their awareness. Use this report when you speak with the patient about their risks for breast cancer, which includes their family history. At that time, you may recommend additional screening tests (Ultrasoun d or MRI) as these tests may add significant information. A negative radiographic report should not delay biopsy if a dominant or clinically suspicious mass is present. Up to ten percent of cancers are not identified on mammography. A negative report may reinforce clinical impression. Adenosis and dense breasts may obscure an underlying neoplasm. False positive reports average 6 to 10%. Patient will receive a letter notifying them of these results.
== END 2024-08-19 03:09 ==
PROVIDERS: PCP Nurse Practitioner; Visit Provider Student in an Organized Health Care Education/Training Program
DX: Z12.31 Encounter for screening mammogram for malignant neoplasm of breast (principal); R92.323 Mammographic fibroglandular density, bilateral breasts
CPT/HCPCS: 77063; 77067

== ENCOUNTER → 2025-02-17 10:06 | Outpatient (BNVA) | payer MEDICARE, MEDICAID, SELFPAY | PROVIDERS: Visit Provider Podiatrist | DX: L60.2 Onychogryphosis (principal); M79.672 Pain in left foot; E11.42 Type 2 diabetes mellitus with diabetic polyneuropathy; I70.203 Unspecified atherosclerosis of native arteries of extremities, bilateral legs; R09.89 Other specified symptoms and signs involving the circulatory and respiratory systems; L65.9 Nonscarring hair loss, unspecified | CPT/HCPCS: 11719 ==